=== PATIENT | male | born 1970 | race African-American/Black ===

== ENCOUNTER 2016-08-01 22:14 | Emergency (ER) | payer MEDICAID ==
[~2016-08-01] VITALS: Ht 167.6 cm; Wt 84.0 kg
[~2016-08-01 22:14] MED LIST: BENA10TA3; GEMF600T3; IBUP-1008; PARO20TA53
[2016-08-01] MEDS ORDERED: HYDRALAZINE 20MG/ML VIAL IV ONE (23:00)
[2016-08-01 23:21] LABS: BASOPHILS % 0.7 % (0.0-2.0); EOSINOPHILS % 3.6 % (0.0-5.0); HEMOGLOBIN. 14.6 g/dL (14.0-18.0); LYMPHOCYTES % 33.1 % (20.0-50.0); MEAN CORPUSCULAR HEMOGLOBIN 31.9 pg (28.0-32.0); MEAN PLATELET VOLUME 7.3 fl (7.4-10.4); MONOCYTES % 9.6 % (2.0-8.0); PLATELET 314 x1000/uL (130-400); RED BLOOD CELL COUNT 4.58 mill/uL (4.7-6.1)
[2016-08-01 23:27] LABS: PARTIAL THROMBOPLASTIN TIME 29.2 sec (24.0-34.0); PROTHROMBIN TIME 10.6 sec
[2016-08-01 23:35] LABS: CARBON DIOXIDE 28 mEq/L (21-32); CHLORIDE 108 mEq/L (98-107); TROPONIN I 0.02 ng/mL (0.00-0.04)
[2016-08-01] MEDS ORDERED: CLONIDINE 0.1MG TABLET PO ONE (23:45)
[2016-08-02 02:06] VITALS: BP 158/98
== END 2016-08-02 02:25 | disposition home or self-care (01) ==
LOC: ER 22:14
DX: R42 Dizziness and giddiness (principal); I10 Essential (primary) hypertension; F17.200 Nicotine dependence, unspecified, uncomplicated; F12.10 Cannabis abuse, uncomplicated; R55 Syncope and collapse; R05 Cough; R06.02 Shortness of breath; Z98.890 Other specified postprocedural states
CPT/HCPCS: 36415; 71010; 80053; 83880; 84484; 85025; 85610; 85730; 93005; 99285; G0482